=== PATIENT | female | born 1990 | race Caucasian/White ===

== ENCOUNTER 2018-12-05 07:25 | Emergency (ER) | payer MEDICAID ==
[~2018-12-05] VITALS: Ht 157.5 cm; Wt 86.2 kg
[2018-12-05 07:38] VITALS: BP 132/86
--- NOTE | 2018-12-05 07:45 | NUR ---
PT CAME IN WITH C/O HEAD AND SPINE ACHE. PAIN STARTED ON 12/03/18, PAIN IS 10/10, IN THE HEAD AND SPINE, GENERALIZED, STIFF. PT STATES SENSITIVITY TO LIGHT AND BLURRY VISION. PT DENIES N/V, DENIES SOB, STATED THAT AT NIGHT SHE WAS DIAPHORETIC. PT IS IN BED, HOB ELEVEATED, SAFETY PRECAUTIONS IN PLACE, ER MD AWARE, WILL CONTINUE TO MONITOR.
--- NOTE | 2018-12-05 08:38 | NUR ---
Patient being evaluated by physician at bedside.
[2018-12-05] MEDS ORDERED: KETOROLAC 30 MG/ML VIAL IVP ONE (08:40)
[2018-12-05] MEDS ORDERED: METOCLOPRAMIDE 10 MG/2 ML INJ VIAL IVP ONE (08:40)
[2018-12-05] MEDS ORDERED: NACL 0.9% 1,000 ML IV ONE (08:40)
[2018-12-05] MEDS ORDERED: diphenhydrAMINE 50 MG/ML VIAL IVP ONE (08:40)
--- NOTE | 2018-12-05 09:31 | NUR ---
0805 IV STARTED AND UA COMPLETED.
[2018-12-05 09:40] LABS: APPEARANCE,URINE CLEAR (CLEAR); BILIRUBIN,URINE NEGATIVE (NEGATIVE); BLOOD, URINE NEGATIVE (NEGATIVE); COLOR,URINE YELLOW (YELLOW); LEUKOCYTE ESTERASE ,URINE NEGATIVE (NEGATIVE); NITRITE, URINE NEGATIVE (NEGATIVE); UGLUCOSE NEGATIVE (NEGATIVE)
[2018-12-05 11:28] VITALS: BP 120/75
--- NOTE | 2018-12-05 11:28 | NUR ---
Patient discharged with v/s stable. Written and verbal after care instructions given and explained. Patient alert, oriented and verbalized understanding of instructions. Ambulatory with steady gait. All questions addressed prior to discharge. ID band removed. Patient advised to follow up with PMD. Rx of NORCO AND REGLAN given. Patient educated on indication of medication including possible reaction and side effects. Opportunity to ask questions provided and answered.
== END 2018-12-05 11:28 | disposition home or self-care (01) ==
LOC: MED 07:25
DX: R51 Headache (principal)
CPT/HCPCS: 81003; 81025; 96374; 96375; 99283; J1200; J1885; J2765; J7030

== ENCOUNTER 2022-01-24 06:35 | Emergency (ER) | payer MEDICAID ==
[~2022-01-24] VITALS: Ht 157.5 cm; Wt 80.7 kg
[2022-01-24 06:50] VITALS: BP 134/68
[2022-01-24] MEDS ORDERED: KETOROLAC 30 MG/ML VIAL IM ONE (07:00)
[2022-01-24] MEDS ORDERED: ONDANSETRON 4 MG ODT PO ONE (07:00)
--- NOTE | 2022-01-24 07:00 | NUR ---
TO BED 9 FROM TRIAGE
[2022-01-24 07:15] LABS: BASOPHILS % (AUTO) 0.1 % (0.0-2.0); EOSINOPHILS # (AUTO) 0.2 K/uL (0-0.4); EOSINOPHILS % (AUTO) 1.5 % (0.0-4.0); HEMATOCRIT 45.4 % (36-48); HEMOGLOBIN 15.1 g/dL (12.0-16.0); LYMPHOCYTES # (AUTO) 1.1 K/uL (2.5-16.5); LYMPHOCYTES % (AUTO) 7.6 % (20.5-51.1); MEAN CORPUSCULAR HEMOGLOBIN 29 pg (27-31); MEAN CORPUSCULAR HGB CONC 33 g/dL (33-37); MEAN CORPUSCULAR VOLUME 88.2 fL (80-94); MONOCYTES # (AUTO) 0.5 K/uL (0.8-1.0); MONOCYTES % (AUTO) 3.4 % (1.7-9.3); NEUTROPHILS # (AUTO) 12.8 K/uL (1.8-7.7); NEUTROPHILS % (AUTO) 87.4 % (42.2-75.2); PLATELET COUNT (AUTO) 382 K/uL (140-450); RED BLOOD CELL COUNT(AUTO) 5.15 MIL/uL (4.20-5.40); RED CELL DISTRIBUTION WIDTH 13.3 % (11.6-13.7); WHITE BLOOD COUNT (AUTO) 14.7 K/uL (4.8-10.8)
[2022-01-24 07:16] LABS: APPEARANCE,URINE SL CLOUDY (CLEAR); BILIRUBIN,URINE NEGATIVE (NEGATIVE); BLOOD, URINE 1+ (NEGATIVE); COLOR,URINE YELLOW (YELLOW); LEUKOCYTE ESTERASE ,URINE TRACE (NEGATIVE); NITRITE, URINE NEGATIVE (NEGATIVE); UGLUCOSE NEGATIVE (NEGATIVE)
--- NOTE | 2022-01-24 07:18 | NUR ---
assumed care for patient at this time
--- NOTE | 2022-01-24 07:32 | NUR ---
31Y FEMALE BIB SELF DUE TO ABDOMINAL PAIN AND N/V X1 DAY. PER PATIENT SHE STARTED TO EXPERINENCE DIARRHEA SATUDAY WHICH RESOLVED ITSELF. N/V AND ABDOMINAL PAIN STARTED YESTERDAY AM PER PATIENT. ABDOMEN IS SOFT AND NON-TENDER TO TOUCH. PAIN IS 8/10 AND CRAMPING LIKE PAIN. DENIES ANY DYSURIA. DENIES ANY FEVER/CHILLS, SOB, CP PMH: DENIES NKA
[2022-01-24 07:33] LABS: OTHER CASTS, URINE None Seen /LPF (None Seen); WBC,URINE 0-5 /HPF (0-5)
[2022-01-24 07:37] LABS: ANION GAP 11.2 (8-16); CARBON DIOXIDE 26.9 mmol/L (21-32); CREATININE 0.8 mg/dL (0.6-1.3); POTASSIUM 4.1 mmol/L (3.5-5.1); TOTAL BILIRUBIN 0.6 mg/dL (0.0-1.0)
[2022-01-24] MEDS ORDERED: NITR100C7 PO (08:37)
[2022-01-24] MEDS ORDERED: BEN10 PO (08:37)
[2022-01-24] MEDS ORDERED: ONDA-188 PO (08:37)
--- NOTE | 2022-01-24 08:59 | NUR ---
Patient discharged with v/s stable. Written and verbal after care instructions FOR ABDOMINAL PAIN, UTI AND VOMITING given and explained. Patient alert, oriented and verbalized understanding of instructions. Ambulatory with steady gait. All questions addressed prior to discharge. ID band removed. Patient advised to follow up with PMD. Rx of BENTLILLY, ZOPAM AND MACROBID given. Opportunity to ask questions provided and answered.
[2022-01-24 09:00] VITALS: BP 123/66
== END 2022-01-24 08:59 | disposition home or self-care (01) ==
LOC: MED 06:35
DX: R11.10 Vomiting, unspecified (principal); R19.7 Diarrhea, unspecified; N39.0 Urinary tract infection, site not specified; Z79.899 Other long term (current) drug therapy
CPT/HCPCS: 36415; 74176; 80053; 81001; 81025; 83690; 85025; 96372; 99284; J1885; Q0162

== ENCOUNTER 2022-06-07 06:38 | Emergency (ER) | payer MEDICAID ==
[~2022-06-07] VITALS: Ht 157.5 cm; Wt 80.3 kg
[~2022-06-07 06:38] MED LIST: BEN10 PO; NITR100C7 PO; ONDA-188 PO
[2022-06-07 06:47] VITALS: BP 146/87
--- NOTE | 2022-06-07 06:51 | NUR ---
PT TAKEN TO BED 9
--- NOTE | 2022-06-07 06:58 | NUR ---
31 yo f bib self with c/c of 8/10 left extremity numbness/pain xyesterday. pt denies injury. states she almost fell at work and caught self with left arm. denies taking medication for pain. limited rom d/t pain. 2nd, 3rd and 4th digits appears swollen. pt was seen at an urgent care yesterday and prescribed ibuprofen. denies hx, rx and allergies
[2022-06-07 07:02] VITALS: BP 146/87
--- NOTE | 2022-06-07 07:10 | NUR ---
Dr. Fabian examining patient.
[2022-06-07] MEDS ORDERED: ACETAMINOPHEN 325 MG TAB PO ONE (07:15)
--- NOTE | 2022-06-07 07:39 | NUR ---
VOLAR SPLINT APPLIED TO L WRIST. + CMS. MERLIN WRAP X 1
--- NOTE | 2022-06-07 08:32 | NUR ---
Patient discharged with v/s stable. Written and verbal after care instructions ABOUT TENDINITIS given and explained. Patient verbalized understanding. Ambulatory with steady gait. All questions addressed prior to discharge. Advised to follow up with PMD.
== END 2022-06-07 08:32 | disposition home or self-care (01) ==
LOC: MED 06:38
DX: M77.8 Other enthesopathies, not elsewhere classified (principal); Z79.899 Other long term (current) drug therapy
CPT/HCPCS: 29125; 73110; 99283; Q0092

== ENCOUNTER 2022-06-29 10:33 | Emergency (ER) | payer MEDICAID ==
[~2022-06-29] VITALS: Ht 157.5 cm; Wt 79.4 kg
[2022-06-29 10:34] VITALS: BP 139/95
--- NOTE | 2022-06-29 10:44 | NUR ---
PATIENT AMBULATED TO BED 9.
[2022-06-29] MEDS ORDERED: LIDOCAINE 5% 1 EA PATCH TP SCH (11:45)
[2022-06-29] MEDS ORDERED: KETOROLAC 15 MG/ML VIAL IM ONE (11:45)
[2022-06-29] MEDS ORDERED: LIDOCAINE 5% 1 EA PATCH TP ONE (11:47)
[2022-06-29] MEDS ORDERED: KETOROLAC 15 MG/ML VIAL ONE (11:48)
--- NOTE | 2022-06-29 12:18 | NUR ---
31/F PRESENTS TO ED WITH C/O LEFT SHOULDER PAIN SINCE SUNDAY. PATIENT DENIES INJURY OR TRAUMA, DENIES TAKING MEDS FOR PAIN, REPORTS 8/10 PAIN THAT WORSENS WITH USE OF ARM AND SHOULDER. NO OBVIOUS SIGNS OF TRAUMA OR DEFORMITY.
[2022-06-29] MEDS ORDERED: LID5T TP (13:08)
[2022-06-29] MEDS ORDERED: IBUP-2213 PO (13:08)
[2022-06-29] MEDS ORDERED: CEPH-588 PO (13:08)
[2022-06-29 13:48] VITALS: BP 101/64
--- NOTE | 2022-06-29 13:48 | NUR ---
Patient discharged with v/s stable. Written and verbal after care instructions ABOUT SHOULDER PAIN AND UTI given and explained. Patient alert, oriented and verbalized understanding of instructions. Ambulatory with steady gait. All questions addressed prior to discharge. ID band removed. Patient advised to follow up with PMD. Rx of KEFLEX, IBUPROFEN AND LIDODERM PATCH given. Patient educated on indication of medication including possible reaction and side effects. Opportunity to ask questions provided and answered.
== END 2022-06-29 13:48 | disposition home or self-care (01) ==
LOC: MED 10:33
DX: M75.32 Calcific tendinitis of left shoulder (principal); Z79.899 Other long term (current) drug therapy; Z79.1 Long term (current) use of non-steroidal anti-inflammatories (NSAID); Z79.2 Long term (current) use of antibiotics
CPT/HCPCS: 73030; 81002; 81025; 93005; 96372; 99283; J1885; Q0092

== ENCOUNTER 2022-10-19 21:15 | Emergency (ER) | payer MEDICAID ==
[~2022-10-19] VITALS: Ht 157.5 cm; Wt 84.8 kg
[~2022-10-19 21:15] MED LIST changes: +CEPH-588 PO; +IBUP-2213 PO; +LID5T TP
[2022-10-19 21:43] VITALS: BP 124/80
--- NOTE | 2022-10-19 21:47 | NUR ---
patient to the bathroom for urine collection
--- NOTE | 2022-10-19 21:50 | NUR ---
pt to lobby
--- NOTE | 2022-10-19 22:19 | NUR ---
PT TO XR
[2022-10-19 22:50] LABS: BASOPHILS % (AUTO) 0.4 % (0.0-2.0); EOSINOPHILS # (AUTO) 0.4 K/uL (0-0.4); EOSINOPHILS % (AUTO) 4.6 % (0.0-4.0); HEMATOCRIT 39.1 % (36-48); HEMOGLOBIN 13.2 g/dL (12.0-16.0); LYMPHOCYTES # (AUTO) 3.1 K/uL (2.5-16.5); MEAN CORPUSCULAR HEMOGLOBIN 29 pg (27-31); MEAN CORPUSCULAR HGB CONC 34 g/dL (33-37); MEAN CORPUSCULAR VOLUME 86.9 fL (80-94); MONOCYTES # (AUTO) 0.7 K/uL (0.8-1.0); MONOCYTES % (AUTO) 7.6 % (1.7-9.3); NEUTROPHILS # (AUTO) 4.7 K/uL (1.8-7.7); NEUTROPHILS % (AUTO) 52.4 % (42.2-75.2); PLATELET COUNT (AUTO) 394 K/uL (140-450); RED CELL DISTRIBUTION WIDTH 12.6 % (11.6-13.7)
[2022-10-19 23:11] LABS: ANION GAP 10.1 (8-16); CARBON DIOXIDE 31.6 mmol/L (21-32); CREATININE 0.8 mg/dL (0.6-1.3); POTASSIUM 3.7 mmol/L (3.5-5.1); TOTAL BILIRUBIN 0.3 mg/dL (0.0-1.0)
[2022-10-19] MEDS ORDERED: IBUP-2213 PO (23:39)
[2022-10-19] MEDS ORDERED: LID5T TP (23:39)
[2022-10-19 23:46] VITALS: BP 124/80
--- NOTE | 2022-10-19 23:46 | NUR ---
Patient discharged. Written and verbal after care instructions given and explained. Patient alert, oriented and verbalized understanding of instructions. Ambulatory with steady gait. All questions addressed prior to discharge. ID band removed. Patient advised to follow up with PMD. Rx of lidocaine Hyd and ibuprofen given. Patient educated on indication of medication including possible reaction and side effects. Opportunity to ask questions provided and answered.
== END 2022-10-19 23:46 | disposition home or self-care (01) ==
LOC: MED 21:15
DX: R07.89 Other chest pain (principal); R19.7 Diarrhea, unspecified; R07.81 Pleurodynia; Z79.899 Other long term (current) drug therapy; Z79.1 Long term (current) use of non-steroidal anti-inflammatories (NSAID); Z79.2 Long term (current) use of antibiotics
CPT/HCPCS: 36415; 71045; 80053; 81025; 83690; 85025; 99284